=== PATIENT | female | born 1970 | race Caucasian/White ===

== ENCOUNTER → 2019-12-18 15:33 | Outpatient (BNVA) | payer OTHER, SELFPAY | PROVIDERS: Family Provider Nurse Practitioner Family; Visit Provider Nurse Practitioner Family | DX: Z11.59 Encounter for screening for other viral diseases (principal) | CPT/HCPCS: 87635 ==

== ENCOUNTER → 2021-12-03 13:30 | Outpatient (BNVA) | payer SELFPAY | PROVIDERS: Family Provider Nurse Practitioner Family; PCP Nurse Practitioner Family; Visit Provider Nurse Practitioner Family | DX: E03.9 Hypothyroidism, unspecified (principal); M25.572 Pain in left ankle and joints of left foot | CPT/HCPCS: 84439; 84443; 84481 ==

== ENCOUNTER 2021-12-04 09:39 | Outpatient (CLI) | payer SELFPAY ==
--- NOTE | 2021-12-04 10:16 | XRR_ITS ---
PROCEDURE INFORMATION: Exam: XR Left Ankle Exam date and time: 12/04/2021 10:17 AM Age: 51 years old Clinical indication: Left ankle pain. TECHNIQUE: Imaging protocol: Radiologic exam of the Left ankle. Views: 3 or more views. COMPARISON: No relevant prior studies available. FINDINGS: Bones/joints: The ankle mortise is symmetric. No osteochondral lesion is seen. Probable avulsed fracture fragment from the distal tip of the fibula. Posterior and plantar calcaneal spurs. Probable marked Achilles tendinosis. Soft tissues: There is soft tissue swelling about the ankle. XR/XR ankle LT min 3V* [id number] IMPRESSION: 1. Probable avulsed fracture fragment from the distal tip of the fibula. 2. Posterior and plantar calcaneal spurs. 3. Probable marked Achilles tendinosis. 4. Soft tissue swelling about the ankle.
== END 2021-12-04 09:40 | disposition home or self-care (01) ==
LOC: RAD 09:50
PROVIDERS: PCP Nurse Practitioner Family; Visit Provider Nurse Practitioner Family
DX: M25.572 Pain in left ankle and joints of left foot (principal); M77.32 Calcaneal spur, left foot; M79.89 Other specified soft tissue disorders
CPT/HCPCS: 73610

== ENCOUNTER → 2022-02-10 14:07 | Outpatient (BNVA) | payer SELFPAY | PROVIDERS: PCP Nurse Practitioner Family; Visit Provider Registered Nurse Neonatal Intensive Care | DX: J02.9 Acute pharyngitis, unspecified (principal) | CPT/HCPCS: 87400 ==

== ENCOUNTER → 2022-06-02 09:48 | Outpatient (BNVA) | payer SELFPAY | PROVIDERS: PCP Nurse Practitioner Family; Visit Provider Nurse Practitioner Family | DX: R39.9 Unspecified symptoms and signs involving the genitourinary system (principal); Z98.84 Bariatric surgery status | CPT/HCPCS: 80053; 80061; 81000; 85025 ==

== ENCOUNTER → 2022-09-01 08:52 | Outpatient (BNVA) | payer SELFPAY | PROVIDERS: PCP Nurse Practitioner Family; Visit Provider Nurse Practitioner Family | DX: Z90.3 Acquired absence of stomach [part of] (principal); E03.9 Hypothyroidism, unspecified | CPT/HCPCS: 80053; 84443 ==

== ENCOUNTER → 2022-12-01 08:37 | Outpatient (BNVA) | payer SELFPAY | PROVIDERS: PCP Nurse Practitioner Family; Visit Provider Nurse Practitioner Family | DX: E03.9 Hypothyroidism, unspecified (principal); Z90.3 Acquired absence of stomach [part of]; E66.9 Obesity, unspecified | CPT/HCPCS: 80053; 82607; 84443; 85025 ==

== ENCOUNTER → 2023-04-20 09:05 | Outpatient (BNVA) | payer SELFPAY | PROVIDERS: PCP Nurse Practitioner Family; Visit Provider Nurse Practitioner Family | DX: E55.9 Vitamin D deficiency, unspecified (principal); R53.83 Other fatigue; E03.9 Hypothyroidism, unspecified; E66.9 Obesity, unspecified | CPT/HCPCS: 80053; 80061; 82607; 84443; 85025 ==

== ENCOUNTER → 2023-07-28 09:30 | Outpatient (BNVA) | payer SELFPAY | PROVIDERS: PCP Nurse Practitioner Family; Visit Provider Nurse Practitioner Family | DX: E03.9 Hypothyroidism, unspecified (principal) | CPT/HCPCS: 84443 ==

== ENCOUNTER → 2023-10-26 07:54 | Outpatient (BNVA) | payer OTHER, SELFPAY | PROVIDERS: PCP Nurse Practitioner Family; Visit Provider Nurse Practitioner Family | DX: R60.0 Localized edema (principal); E03.9 Hypothyroidism, unspecified | CPT/HCPCS: 80053; 80061; 84443 ==

== ENCOUNTER → 2024-01-19 08:02 | Outpatient (BNVA) | payer OTHER, SELFPAY | PROVIDERS: PCP Nurse Practitioner Family; Visit Provider Nurse Practitioner Family | DX: E03.9 Hypothyroidism, unspecified (principal) | CPT/HCPCS: 84443 ==

== ENCOUNTER 2024-01-22 12:52 | Outpatient (CLI) | payer OTHER, SELFPAY ==
--- NOTE | 2024-01-22 13:00 | MM_ITS ---
WS: [id number] BILATERAL 3D TOMOSYNTHESIS DIGITAL SCREENING MAMMOGRAPHY WITH CAD CLINICAL INFORMATION: Z12.39 - Encounter for other screening for malignant neop... HISTORY: Screening mammogram. No current complaints. COMPARISON: None. TECHNIQUE: Bilateral CC and MLO views. FINDINGS: Scattered fibroglandular densities bilaterally. Benign lucent centered calcifications RIGHT breast. A few tiny punctate clustered calcifications LEFT breast. Recommend spot modification views of these c lustered LEFT breast calcifications. No available comparisons. RIGHT breast is unremarkable. MM/MM [facility] tomosynthesis [id number] IMPRESSION: DENSITY: There are scattered areas of fibroglandular density. BI-RADS: 0 - Incomplete: Need additional imaging evaluation. FOLLOW UP: Need Additional Imaging Recommend spot magnification views of the loosely clustered calcifications LEFT breast.
== END 2024-01-22 12:53 | disposition home or self-care (01) ==
LOC: RAD 12:52
PROVIDERS: PCP Nurse Practitioner Family; Visit Provider Nurse Practitioner Women's Health
DX: Z12.31 Encounter for screening mammogram for malignant neoplasm of breast (principal); R92.323 Mammographic fibroglandular density, bilateral breasts; R92.1 Mammographic calcification found on diagnostic imaging of breast
CPT/HCPCS: 77063; 77067

== ENCOUNTER 2024-02-03 06:22 | Day surgery (SDC) | payer OTHER, SELFPAY ==
[2024-02-03 06:37] VITALS: BP 114/68; PULSE 70; RESP 18; TEMP 36.2; O2SAT 97; BMI 31.9
[2024-02-03] MEDS: sodium chloride 0.9% 500 ML 15 ML IV (06:43)
--- NOTE | 2024-02-03 06:44 | ANES.PREANE2 ---
Pre-Anesthetic Assessment Height/Weight: Height 1.73 m Weight 95.254 kg Temp Pulse Resp BP Pulse Ox O2 Del Method 97.1 F L 70 18 114/68 97 Room Air 02/03/24 06:37 02/03/24 06:37 02/03/24 06:37 02/03/24 06:37 02/03/24 06:37 02/03/24 06:37 Preop Diagnosis: Screening Operation Date: 02/03/24 07:30 Proposed Procedures p Colonoscopy 50862, G0121, Z12.11(Not Applicable) - Daniel Gilbert DO Familial anesthetic complications: PONV Was Beta Korey taken within 24 hours: N/A Was Clonidine taken within 24 hours: N/A Last intake: Intake Last Liquid Date 02/02/24 Last Liquid Time 20:30 Last Solid Date 02/01/24 Last Solid Time 12:00 Social No alcohol and No tobacco Exam alert, oriented x 3, clear to auscultation bilaterally and regular rate & rhythm Airway Submandibular: within normal limits Cervical ROM: within normal limits Mallampati: Class II Dentition: partials (Left at home) History/ROS No significant history except as noted and No significant complaints Pulmonary Cough CV/HEM Murmur None reported Hepatic None reported GI None reported Gastric sleeve 2022, fixed hernia as well Metabolic Thyroid Disease [facility] [place]/[facility] None reported Neuropsych Anxiety and Depression Anesthetic Plan ASA status: 2 Anesthesia: Anesthesia Evaluation, General and MAC Risk of > 500 ml blood loss (7ml/kg in children): No Medications/Allergies Home Medications Medication Instructions Recorded Confirmed Last Taken Type cyanocobalamin (vitamin B-12) 5,000 mcg PO DAILY #1 patch 06/02/22 02/01/24 02/02/24 Rx 5,000 mcg capsule estradiol 0.5 mg tablet 0.5 mg PO DAILY #90 tabs 01/07/24 02/01/24 02/02/24 Rx fluoxetine 20 mg capsule (Prozac) 20 mg PO BID #180 caps 01/15/24 02/01/24 02/02/24 Rx furosemide 20 mg tablet 20 mg PO PRN 02/01/24 02/01/24 01/04/24 History levothyroxine 75 mcg tablet 75 mcg PO .QAM 02/01/24 02/01/24 02/02/24 History multivitamin with minerals (Daily 1 tab PO DAILY 02/01/24 02/01/24 02/02/24 History Multivitamin-Minerals tablet) Allergies Allergy/AdvReac Type Severity Reaction Status Date / Time prochlorperazine Allergy anxious Verified 02/01/24 11:24 [From Compazine] [facility], [facility] Anesthesia Medical History Psychiatric care Hernia of abdominal wall Calcific Achilles tendinitis of left lower extremity Surgical History H/O gastric sleeve H/O: hysterectomy Hx of cholecystectomy History of appendectomy Family History Mother CAD (coronary artery disease) COPD (chronic obstructive pulmonary disease) Breast cancer Heart disease Hypertension Diabetes Thyroid disease Father Stroke Hypertension Agent orange exposure Heart disease Diabetes Grandfather Heart disease Sister Diabetes Social History Smoking and tobacco/nicotine status: never used tobacco/nicotine Alcohol intake: never Substance/Drug Use: never Adopted: No Lives independently: Yes Household members: spouse Housing: House Marital status: Data Anesthesia Cardiac Studies: No Data to Display
--- NOTE | 2024-02-03 07:51 | W.PM.OPSUD ---
Surgery/Procedure H&P Update DATE OF PROCEDURE: February 03, 2024 DATE H&P PERFORMED: 01/18/24 H&P UPDATE INFORMATION: I have reviewed H&P completed within last 30 days, I have examined patient prior to procedure and No changes to prior documentation PREOP DIAGNOSIS: Screening PLANNED PROCEDURE: Operation Date: 02/03/24 07:30 Proposed Procedures p Colonoscopy [id number], G0121, Z12.11(Not Applicable) - Daniel Gilbert DO
[2024-02-03 08:05] VITALS: BP 102/61; PULSE 65; RESP 12; TEMP 36.6; O2SAT 94
[2024-02-03 08:21] VITALS: BP 110/75; PULSE 68; RESP 18; O2SAT 98
--- NOTE | 2024-02-03 08:35 | ANE.PACU2 ---
Inpatient post-anesthesia follow up: Airway intact: Yes Vital signs: Temperature 97.8 F Pulse Rate 68 Respiratory Rate 18 Blood Pressure 110/75 Pulse Oximetry 98 Oxygen Delivery Me thod Room Air Oxygen Flow Rate Fraction of Inspir ed Oxygen Hydration adequate: Yes Nausea and vomiting: No Pain level: 1 Mental status: Baseline
== END 2024-02-03 08:39 | disposition home or self-care (01) ==
PROVIDERS: PCP Nurse Practitioner Family; Visit Provider Surgery
PROC: 0DJD8ZZ Inspection of Lower Intestinal Tract, Via Natural or Artificial Opening Endoscopic (ICD-10-PCS; CPT 45378; principal; 2024-02-03 07:30)
DX: Z12.11 Encounter for screening for malignant neoplasm of colon (principal); K57.30 Diverticulosis of large intestine without perforation or abscess without bleeding
CPT/HCPCS: 45378; J2704; J7040

== ENCOUNTER 2024-02-04 15:26 | Outpatient (CLI) | payer OTHER, SELFPAY ==
--- NOTE | 2024-02-04 15:40 | MM_ITS ---
WS: [id number] LEFT 3D TOMOSYNTHESIS DIGITAL MAMMOGRAPHY WITH CAD CLINICAL INFORMATION: N64.9 - Disorder of breast, unspecified HISTORY: Additional views COMPARISON: 01/22/2024 TECHNIQUE: 2 views of the left breast were obtained. FINDINGS: Scattered fibroglandular densities of the left breast. Heterogeneous clustered calcifications LEFT br east. These are indeterminate and recommend further evaluation with stereotactic guided biopsy. MM/MM diag LT tomosynthesis [id number] IMPRESSION: DENSITY: There are scattered areas of fibroglandular density. BI-RADS: 4 - Suspicious Finding - Biopsy Should Be Considered. FOLLOW UP: Stereotactic Biopsy Recommended Recommend stereotactic-guided biopsy of the clustered LEFT breast calcification s.
== END 2024-02-04 15:27 | disposition home or self-care (01) ==
PROVIDERS: PCP Nurse Practitioner Family; Visit Provider Nurse Practitioner Women's Health
DX: R92.1 Mammographic calcification found on diagnostic imaging of breast (principal); R92.323 Mammographic fibroglandular density, bilateral breasts
CPT/HCPCS: 77061; G0279

== ENCOUNTER 2024-03-01 14:31 | Outpatient (CLI) | payer OTHER, SELFPAY ==
--- NOTE | 2024-03-01 | MM_ITS ---
WS: [id number] STEREOTACTIC LEFT BREAST BIOPSY WITH VACUUM ASSISTANCE HISTORY: Suspicious calcifications. COMPARISON: 02/04/2024, 01/22/2024 Procedure, risks and complications were explained to the patient. Medications and prior radiographs a re reviewed. LEFT breast calcifications are located. Calcifications upper outer quadrant LEFT breast. Calcificatio ns are targeted in the craniocaudal projection. The skin is cleansed with ChloraPrep and anesthetized with 1% buffered lidocaine. Deeper soft tissues anesthetized with a combination of lidocaine and epi nephrine. Small dermatome is made. Needle advanced into the LEFT breast. Stereotactic imaging reveals appropriate positioning adjacent calcifications. Multiple vacuum-assisted core biopsies are obtained . Patient did experience a vasovagal reaction during the biopsy. Biopsy was completed with calcificat ions noted in the specimen. Post biopsy specimen radiograph reveals numerous calcifications. Biopsy clip is placed in the cavity. Post imaging reveals good placement of the clip. No migration. Pressures held for approximately 15 minutes. No bleeding. Dressing applied. Patient discharged with n o complications. There is no bleeding. With any questions or complications patient is to return. MM/MM surgical specimen LT IMPRESSION: 1. Uncomplicated LEFT breast stereotactic biopsy. 2. Specimen contains numerous calcifications. Pathology: Fibrocystic changes, ductal ectasia, fibrosis and sclerosing adenosi s. No malignancy. RECOMMENDATION: Diagnostic LEFT mammogram 6 months.
--- NOTE | 2024-03-01 | MM_ITS ---
WS: [id number] STEREOTACTIC LEFT BREAST BIOPSY WITH VACUUM ASSISTANCE HISTORY: Suspicious calcifications. COMPARISON: 02/04/2024, 01/22/2024 Procedure, risks and complications were explained to the patient. Medications and prior radiographs a re reviewed. LEFT breast calcifications are located. Calcifications upper outer quadrant LEFT breast. Calcificatio ns are targeted in the craniocaudal projection. The skin is cleansed with ChloraPrep and anesthetized with 1% buffered lidocaine. Deeper soft tissues anesthetized with a combination of lidocaine and epi nephrine. Small dermatome is made. Needle advanced into the LEFT breast. Stereotactic imaging reveals appropriate positioning adjacent calcifications. Multiple vacuum-assisted core biopsies are obtained . Patient did experience a vasovagal reaction during the biopsy. Biopsy was completed with calcificat ions noted in the specimen. Post biopsy specimen radiograph reveals numerous calcifications. Biopsy clip is placed in the cavity. Post imaging reveals good placement of the clip. No migration. Pressures held for approximately 15 minutes. No bleeding. Dressing applied. Patient discharged with n o complications. There is no bleeding. With any questions or complications patient is to return. MM/[place] [id number] IMPRESSION: 1. Uncomplicated LEFT breast stereotactic biopsy. 2. Specimen contains numerous calcifications. Pathology: Fibrocystic changes, ductal ectasia, fibrosis and sclerosing adenosi s. No malignancy. RECOMMENDATION: Diagnostic LEFT mammogram 6 months.
--- NOTE | 2024-03-01 15:00 | MM_ITS ---
WS: [id number] STEREOTACTIC LEFT BREAST BIOPSY WITH VACUUM ASSISTANCE HISTORY: Suspicious calcifications. COMPARISON: 02/04/2024, 01/22/2024 Procedure, risks and complications were explained to the patient. Medications and prior radiographs a re reviewed. LEFT breast calcifications are located. Calcifications upper outer quadrant LEFT breast. Calcificatio ns are targeted in the craniocaudal projection. The skin is cleansed with ChloraPrep and anesthetized with 1% buffered lidocaine. Deeper soft tissues anesthetized with a combination of lidocaine and epi nephrine. Small dermatome is made. Needle advanced into the LEFT breast. Stereotactic imaging reveals appropriate positioning adjacent calcifications. Multiple vacuum-assisted core biopsies are obtained . Patient did experience a vasovagal reaction during the biopsy. Biopsy was completed with calcificat ions noted in the specimen. Post biopsy specimen radiograph reveals numerous calcifications. Biopsy clip is placed in the cavity. Post imaging reveals good placement of the clip. No migration. Pressures held for approximately 15 minutes. No bleeding. Dressing applied. Patient discharged with n o complications. There is no bleeding. With any questions or complications patient is to return. MM/[place] [id number] IMPRESSION: 1. Uncomplicated LEFT breast stereotactic biopsy. 2. Specimen contains numerous calcifications. Pathology: Fibrocystic changes, ductal ectasia, fibrosis and sclerosing adenosi s. No malignancy. RECOMMENDATION: Diagnostic LEFT mammogram 6 months.
== END 2024-03-01 14:32 | disposition home or self-care (01) ==
PROVIDERS: PCP Nurse Practitioner Family; Visit Provider Nurse Practitioner Women's Health
DX: R92.8 Other abnormal and inconclusive findings on diagnostic imaging of breast (principal); R92.1 Mammographic calcification found on diagnostic imaging of breast; N60.42 Mammary duct ectasia of left breast; N60.32 Fibrosclerosis of left breast; N60.22 Fibroadenosis of left breast
CPT/HCPCS: 19081; 77065; 88305

== ENCOUNTER 2024-08-09 14:28 | Outpatient (CLI) | payer OTHER, SELFPAY ==
--- NOTE | 2024-08-09 15:05 | US_ITS ---
WS: [id number] DIAGNOSTIC LEFT DIGITAL BREAST TOMOSYNTHESIS MAMMOGRAPHY WITH CAD LEFT breast ultrasound, limited HISTORY: 6-month follow-up biopsy calcifications. COMPARISON: 03/01/2024, 02/04/2024 TECHNIQUE: Bilateral craniocaudad, mediolateral oblique, and mediolateral views are submitted with tomosynthesis and SM. Magnification views LEFT CC and MLO. Computer aided detection utilized. Breast composition: There are scattered areas of fibroglandular density. Biopsy clip upper outer quadrant LEFT breast. Biopsy clip slightly migrated from the biopsy site. The number of calcifications has significantly decreased. There is an area of very subtle increased density measuring 1.3 x 1.0 cm in the posterior medial LEFT breast near the nipple line. Ultrasound will be performed. LEFT breast ultrasound, limited. 10:00 axis LEFT breast approximate 5 cm from the nipple is a cyst measuring 1.1 x 0.9 x 0.5 cm. This does correspond to the mammographic abnormality. There is an additional smaller cyst at 8:00, 2 cm from the nipple. No solid mass or shadowing. US/US breast LT limited* [id number] IMPRESSION: BI-RADS: 2 - Benign. FOLLOW UP: 1 Year Follow-up Recommend return to annual screening mammography.
--- NOTE | 2024-08-09 16:00 | MM_ITS ---
WS: [id number] DIAGNOSTIC LEFT DIGITAL BREAST TOMOSYNTHESIS MAMMOGRAPHY WITH CAD LEFT breast ultrasound, limited HISTORY: 6-month follow-up biopsy calcifications. COMPARISON: 03/01/2024, 02/04/2024 TECHNIQUE: Bilateral craniocaudad, mediolateral oblique, and mediolateral views are submitted with tomosynthesis and SM. Magnification views LEFT CC and MLO. Computer aided detection utilized. Breast composition: There are scattered areas of fibroglandular density. Biopsy clip upper outer quadrant LEFT breast. Biopsy clip slightly migrated from the biopsy site. The number of calcifications has significantly decreased. There is an area of very subtle increased density measuring 1.3 x 1.0 cm in the posterior medial LEFT breast near the nipple line. Ultrasound will be performed. LEFT breast ultrasound, limited. 10:00 axis LEFT breast approximate 5 cm from the nipple is a cyst measuring 1.1 x 0.9 x 0.5 cm. This does correspond to the mammographic abnormality. There is an additional smaller cyst at 8:00, 2 cm from the nipple. No solid mass or shadowing. MM/MM diag LT tomosynthesis [id number] IMPRESSION: BI-RADS: 2 - Benign. FOLLOW UP: 1 Year Follow-up Recommend return to annual screening mammography.
== END 2024-08-09 14:29 | disposition home or self-care (01) ==
PROVIDERS: PCP Nurse Practitioner Family; Visit Provider Nurse Practitioner Women's Health
DX: N60.02 Solitary cyst of left breast (principal)
CPT/HCPCS: 76642; 77061; G0279

== ENCOUNTER 2024-08-24 16:51 | Outpatient (CLI) | payer OTHER, SELFPAY | END 2024-08-24 17:50 | disposition home or self-care (01) | LOC: RAD 17:10 | PROVIDERS: PCP Nurse Practitioner Family; Visit Provider Surgery Plastic and Reconstructive Surgery | DX: Z13.6 Encounter for screening for cardiovascular disorders (principal); F41.1 Generalized anxiety disorder; F32.9 Major depressive disorder, single episode, unspecified | CPT/HCPCS: 93005 ==

== ENCOUNTER 2024-08-24 17:57 | Outpatient (CLI) | payer OTHER, SELFPAY ==
[2024-08-24 18:42] LABS: Anion Gap 15.1 (5-19); Blood Urea Nitrogen 17 mg/dL (6-20); Calcium 9.2 mg/dL (8.5-10.5); Carbon Dioxide 27 mmol/L (22-29); Chloride 102 mmol/L (98-107); Glucose 83 mg/dL (65-115); Osmolality Calculated 291 mOsm/kg (285-295); Potassium 4.1 mmol/L (3.5-5.1); Sodium 140 mmol/L (136-145)
== END 2024-08-24 17:58 | disposition home or self-care (01) ==
PROVIDERS: PCP Nurse Practitioner Family; Visit Provider Surgery Plastic and Reconstructive Surgery
DX: Z01.89 Encounter for other specified special examinations (principal)
CPT/HCPCS: 80048

== ENCOUNTER → 2024-11-14 08:19 | Outpatient (BNVA) | payer OTHER, SELFPAY | PROVIDERS: PCP Nurse Practitioner Family; Visit Provider Nurse Practitioner Family | DX: E03.0 Congenital hypothyroidism with diffuse goiter (principal); I10 Essential (primary) hypertension | CPT/HCPCS: 80053; 80061; 84443 ==